=== PATIENT | male | born 1950 | race Caucasian/White ===

== ENCOUNTER → 2025-02-12 | Outpatient (CLI) | payer MEDICARE, SELFPAY ==
[2025-02-12 15:25] LABS: Hematocrit 44.0 % (40-54); Hemoglobin 14.5 g/dL (13.0-16.5); Immature Granulocytes Count 0.040 X10^3/uL (0.0-0.0); Mean Corp Hgb Conc 33.0 g/dL (32-36); Mean Corpuscular Volume 96.5 fL (80-94); Mean Platelet Vol. 11.3 fl (6.2-12.0); NRBC Flagged by Analyzer 0 % (0-5); POSITIVE DIFFERENTIAL YES; Platelet Count 210 K/mm3 (150-450); RBC Distribution Width CV 14.4 % (11.6-14.6); RBC Distribution Width SD 51.0 fl (35.1-43.9); Red Blood Count 4.56 M/mm3 (4.6-6.2); White Blood Count 10.0 K/mm3 (4.4-11.0)
[2025-02-12 16:51] LABS: AST(SGOT) 19 U/L (<=37); Alanine Aminotransfer ALT/SGPT 9 U/L (<=46); Albumin, Serum 4.3 g/dL (3.4-4.8); Alkaline Phosphatase 76 U/L (40-129); Anion Gap 14 (5-15); BUN 20 mg/dL (4-19); BUN/Creat Ratio 23.4 RATIO (10-20); CRP 3.81 mg/L (0.0-3.0); Calcium,Total 9.6 mg/dL (7.6-11.0); Carbon Dioxide 24.9 mmol/L (21.0-32.0); Chloride 102 mmol/L (98-108); Globulin 3.1 g/dL (2.2-4.2); Glucose 144 mg/dL (70-99); Magnesium 2.3 mg/dL (1.5-2.2); Potassium 4.1 mmol/L (3.3-5.1); Vitamin B12 301 pg/mL (180-914)
[2025-02-18 17:08] LABS: Folate, Hemolysate Test 500.0 ng/mL (Not Estab.); Folate, RBC (Hct) Test 43.9 % (37.5-51.0); Folates, RBC Test 1139 ng/mL (>498); Vitamin B1, Thiamine 124.5 nmol/L (66.5-200.0)
== END | disposition home or self-care (01) ==
PROVIDERS: PCP Family Medicine
DX: H54.3 Unqualified visual loss, both eyes (principal)
CPT/HCPCS: 36415; 80053; 82607; 82747; 83735; 84425; 85014; 85025; 85652; 86140

== ENCOUNTER → 2025-03-05 | Outpatient (CLI) | payer MEDICARE, SELFPAY ==
--- NOTE | 2025-03-05 12:55 | CT_ITS ---
PROCEDURE: CTA HEAD W/WO CONTRAST 03/05/2025 REASON FOR EXAM: TRANSIENT BINOCULAR VISION LOSS TECHNIQUE: CTA HEAD W/WO CONTRAST Multiplanar Sagittal and Coronal images were obtained. 3D post processing was performed CONTRAST: Isovue 370 VOLUME: 95 mL One or more dose reduction techniques were used (e.g., Automated exposure control, adjustment of the mA and/or kV according to patient size, use of iterative reconstruction technique). RADIATION DOSE SUMMARY: CTDlvol: 28.3 mGy DLP: 1215.22 mGycm COMPARISON: None FINDINGS: [place]: [place] anatomy is normal Anuerysm or AVM: Unremarkable Distal internal carotid arteries: Unremarkable Anterior cerebral arteries: Unremarkable Middle cerebral arteries: Unremarkable Vertebral arteries: Unremarkable Basilar artery: Unremarkable Posterior cerebral arteries: Unremarkable Other major branches of the posterior circulation: Unremarkable Major venous structures: Unremarkable Non-vascular findings: Partial opacification of the maxillary sinuses in the sphenoid sinus. 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 CT/CTA Head W/WO Contrast IMPRESSION: No intracranial abnormality is seen. Reading Location: [id number]
== END | disposition home or self-care (01) ==
LOC: CT 12:42
PROVIDERS: PCP Family Medicine
DX: H54.3 Unqualified visual loss, both eyes (principal)
CPT/HCPCS: 70496; Q9967